=== PATIENT | male | born 1960 | race Caucasian/White ===

== ENCOUNTER 2017-11-25 19:11 | Emergency (ER) | payer OTHER ==
[~2017-11-25] VITALS: Ht 182.9 cm; Wt 94.8 kg
[2017-11-25 20:00] LABS: HEMATOCRIT 47.1 % (38.0-50.0); HEMOGLOBIN 15.8 G/DL (12.5-16.6); MCH 30.6 PG (29.0-34.0); MCHC 33.5 G/DL (30.0-36.0); MCV 91.3 FL (86-99); PLATELET COUNT 244 K/uL (156-360); RBC DIS.WIDTH-CV 13.3 % (11.8-14.6); RBC DIS.WIDTH-SD 45.2 % (39-53); RED BLOOD COUNT 5.16 M/uL (4.00-5.50); WHITE BLOOD COUNT 6.6 K/uL (4.1-10.2)
[2017-11-25 20:09] LABS: ALBUMIN 3.3 g/dL (3.2-4.8); CHLORIDE 104 mEq/L (99-109); POTASSIUM 4.4 mEq/L (3.7-5.4); SODIUM 145 mEq/L (136-147)
[2017-11-25 20:12] LABS: GLUCOSE 265 mg/dL (70-99); TOTAL PROTEIN 6.4 g/dL (6.4-8.3)
[2017-11-25 20:14] LABS: TOTAL BILIRUBIN 0.3 mg/dL (0.0-1.0)
[2017-11-25 20:15] LABS: ALKALINE PHOSPHATASE 118 IU/L (3-129); CREATININE 0.8 mg/dL (0.6-1.3)
[2017-11-25 20:16] LABS: UREA NITROGEN (BUN) 13 mg/dL (9-23)
[2017-11-25 20:17] LABS: AST (GOT) 22 IU/L (2-34)
[2017-11-25 20:18] LABS: ALT (GPT) 21 IU/L (3-49); GFR ESTIMATE (CALCULATED) > 59 mL/min/ (58.99-99999)
[2017-11-25 20:20] LABS: TROP-I INTERPRETATION NEGATIVE; TROPONIN-I 0.04 ng/mL (0.0-0.30)
[2017-11-25] MEDS ORDERED: DUONEB 2.5-0.5 M3 ML AEROSOL (20:36)
[2017-11-25] MEDS ORDERED: NEBULIZER MC (20:37)
[2017-11-25 21:40] LABS: APPEARANCE CLEAR ((CLEAR)); BILIRUBIN NEGATIVE; BLOOD NEGATIVE; COLOR YELLOW ((YELLOW)); GLUCOSE (STRIP) >=500; KETONES NEGATIVE; LEUKOCYTES NEGATIVE; NITRITE NEGATIVE; PROTEIN (STRIP) NEGATIVE; SPECIFIC GRAVITY 1.018 (1.000-1.030)
[2017-11-25] MEDS ORDERED: LASIX40 MG PO (22:25)
[2017-11-25] MEDS ORDERED: K-DUR20 MEQ PO (22:25)
[2017-11-25 23:16] VITALS: BP 166/89
== END 2017-11-25 23:37 | disposition home or self-care (01) ==
LOC: EME 19:11
PROVIDERS: Emergency Medicine Emergency Medical Services
DX: J44.9 Chronic obstructive pulmonary disease, unspecified (principal); I50.9 Heart failure, unspecified; E87.70 Fluid overload, unspecified; R09.02 Hypoxemia; F17.210 Nicotine dependence, cigarettes, uncomplicated; I10 Essential (primary) hypertension; E11.9 Type 2 diabetes mellitus without complications; Z79.4 Long term (current) use of insulin; E78.5 Hyperlipidemia, unspecified; Z88.6 Allergy status to analgesic agent
CPT/HCPCS: 71046; 80048; 80053; 81003; 83880; 84484; 85027; 85379; 93005; 94640; 99281; 99284

== ENCOUNTER 2018-01-29 05:55 | Emergency (ER) | payer SELFPAY ==
[~2018-01-29] VITALS: Ht 182.9 cm; Wt 97.3 kg
[~2018-01-29 05:55] MED LIST: DUONEB 2.5-0.5 M3 ML AEROSOL; K-DUR20 MEQ PO; LASIX40 MG PO; NEBULIZER MC
[2018-01-29 06:36] LABS: BASOPHIL (%) 0.9 % (0-1); BASOPHIL COUNT 0.1 K/uL (0-0.1); EOSINOPHIL (%) 3.6 % (0-5); EOSINOPHIL COUNT 0.2 K/uL (0-0.3); HEMATOCRIT 44.4 % (38.0-50.0); HEMOGLOBIN 15.3 G/DL (12.5-16.6); IMMATURE GRANULOCYTE (%) 0.4 % (0.0-0.7); LYMPHOCYTE (%) 24.3 % (15-42); LYMPHOCYTE COUNT 1.4 K/uL (1.0-2.8); MCH 31.9 PG (29.0-34.0); MCHC 34.5 G/DL (30.0-36.0); MCV 92.7 FL (86-99); MONOCYTE (%) 8.4 % (3-12); MONOCYTE COUNT 0.5 K/uL (0-0.8); NEUTROPHIL (%) 62.4 % (45-76); NEUTROPHIL COUNT 3.5 K/uL (1.8-6.4); PLATELET COUNT 210 K/uL (156-360); RBC DIS.WIDTH-CV 13.7 % (11.8-14.6); RBC DIS.WIDTH-SD 46.5 % (39-53); RED BLOOD COUNT 4.79 M/uL (4.00-5.50); WHITE BLOOD COUNT 5.6 K/uL (4.1-10.2)
[2018-01-29 06:53] LABS: CHLORIDE 108 MEQ/L (99-109); POTASSIUM 4.2 MEQ/L (3.7-5.4); SODIUM 142 MEQ/L (136-147)
[2018-01-29 06:59] LABS: CREATININE 0.8 MG/DL (0.6-1.3); GFR ESTIMATE (CALCULATED) > 59 mL/min/ (58.99-99999); GLUCOSE 239 mg/dL (70-99); UREA NITROGEN (BUN) 17 mg/dL (9-23)
[2018-01-29] MEDS ORDERED: ZITHROMAX Z-PA250 MG PO (08:13)
[2018-01-29] MEDS ORDERED: PREDNISONE50 MG PO (08:13)
[2018-01-29] MEDS ORDERED: PROVENTIL HFA6.7 GM IH (08:16)
[2018-01-29 08:43] VITALS: BP 169/99
== END 2018-01-29 08:45 | disposition home or self-care (01) ==
LOC: EME 05:55
PROVIDERS: Emergency Medicine
DX: J20.9 Acute bronchitis, unspecified (principal); F17.210 Nicotine dependence, cigarettes, uncomplicated; E11.9 Type 2 diabetes mellitus without complications; E78.5 Hyperlipidemia, unspecified; I10 Essential (primary) hypertension; Z79.82 Long term (current) use of aspirin; Z88.6 Allergy status to analgesic agent
CPT/HCPCS: 71045; 80048; 85025; 93005; 94640; 99281; 99284; J7512

== ENCOUNTER 2018-02-19 07:42 | Inpatient (IN) | payer OTHER ==
[~2018-02-19] VITALS: Ht 185.4 cm; Wt 100.2 kg
[~2018-02-19 07:42] MED LIST changes: +PREDNISONE50 MG PO; +PROVENTIL HFA6.7 GM IH; +ZITHROMAX Z-PA250 MG PO
[2018-02-19 08:22] LABS: HEMOGLOBIN 15.5 G/DL (12.5-16.6); MCHC 34.4 G/DL (30.0-36.0); MCV 92.8 FL (86-99); PLATELET COUNT 238 K/uL (156-360); RBC DIS.WIDTH-CV 13.5 % (11.8-14.6); RBC DIS.WIDTH-SD 45.7 % (39-53); RED BLOOD COUNT 4.85 M/uL (4.00-5.50); WHITE BLOOD COUNT 7.9 K/uL (4.1-10.2)
[2018-02-19 08:49] LABS: CHLORIDE 109 MEQ/L (99-109); CREATININE 0.7 MG/DL (0.6-1.3); GFR ESTIMATE (CALCULATED) > 59 mL/min/ (58.99-99999); GLUCOSE 219 mg/dL (70-99); POTASSIUM 3.7 MEQ/L (3.7-5.4); SODIUM 143 MEQ/L (136-147); UREA NITROGEN (BUN) 9 mg/dL (9-23)
[2018-02-19] MEDS ORDERED: MUCINEX1200 MG PO (10:43)
[2018-02-19] MEDS ORDERED: ASPIRIN325 MG PO (10:43)
[2018-02-19] MEDS ORDERED: LASIX40 MG PO (10:46)
[2018-02-19 12:45] LABS: TROP-I INTERPRETATION NEGATIVE; TROPONIN-I 0.05 ng/mL (0.0-0.30)
[2018-02-19 14:59] LABS: HEMOGLOBIN A1c (GLYCOHEMOGLOB) 9.5 % (Below 5.7)
[2018-02-19 18:00] VITALS: BP 176/88
[2018-02-19 19:40] LABS: TROP-I INTERPRETATION NEGATIVE; TROPONIN-I 0.04 ng/mL (0.0-0.30)
[2018-02-19 20:00] VITALS: BP 143/86
[2018-02-19 23:54] VITALS: BP 176/79
[2018-02-20 01:02] LABS: TROP-I INTERPRETATION NEGATIVE; TROPONIN-I 0.03 ng/mL (0.0-0.30)
[2018-02-20 03:57] VITALS: BP 188/77
[2018-02-20 05:25] LABS: HEMATOCRIT 43.4 % (38.0-50.0); HEMOGLOBIN 14.6 G/DL (12.5-16.6); MCHC 33.6 G/DL (30.0-36.0); MCV 92.1 FL (86-99); PLATELET COUNT 223 K/uL (156-360); RBC DIS.WIDTH-CV 13.3 % (11.8-14.6); RBC DIS.WIDTH-SD 45.7 % (39-53); RED BLOOD COUNT 4.71 M/uL (4.00-5.50); WHITE BLOOD COUNT 7.7 K/uL (4.1-10.2)
[2018-02-20 05:44] LABS: CHLORIDE 101 MEQ/L (99-109); CREATININE 0.8 MG/DL (0.6-1.3); GFR ESTIMATE (CALCULATED) > 59 mL/min/ (58.99-99999); GLUCOSE 296 mg/dL (70-99); POTASSIUM 3.6 MEQ/L (3.7-5.4); SODIUM 141 MEQ/L (136-147); UREA NITROGEN (BUN) 13 mg/dL (9-23)
[2018-02-20 07:18] VITALS: BP 164/85
[2018-02-20 12:38] LABS: TROP-I INTERPRETATION NEGATIVE; TROPONIN-I 0.05 ng/mL (0.0-0.30)
[2018-02-20 14:59] VITALS: BP 172/81
[2018-02-20 17:47] VITALS: BP 149/70
[2018-02-20 19:31] VITALS: BP 135/94
[2018-02-21] VITALS (8 sets, daily range): BP systolic 130–195; BP diastolic 78–106
[2018-02-21 05:12] LABS: HEMATOCRIT 44.5 % (38.0-50.0); HEMOGLOBIN 14.9 G/DL (12.5-16.6); MCH 31.3 PG (29.0-34.0); MCHC 33.5 G/DL (30.0-36.0); MCV 93.5 FL (86-99); PLATELET COUNT 231 K/uL (156-360); RBC DIS.WIDTH-CV 13.6 % (11.8-14.6); RBC DIS.WIDTH-SD 47.1 % (39-53); RED BLOOD COUNT 4.76 M/uL (4.00-5.50); WHITE BLOOD COUNT 9.3 K/uL (4.1-10.2)
[2018-02-21 06:06] LABS: CHLORIDE 97 MEQ/L (99-109); CREATININE 0.8 MG/DL (0.6-1.3); GFR ESTIMATE (CALCULATED) > 59 mL/min/ (58.99-99999); GLUCOSE 282 mg/dL (70-99); POTASSIUM 3.9 MEQ/L (3.7-5.4); SODIUM 138 MEQ/L (136-147); UREA NITROGEN (BUN) 15 mg/dL (9-23)
[2018-02-21] MEDS ORDERED: SYMBICORT60 INHALA1 IH (09:47)
[2018-02-21] MEDS ORDERED: VENTOLIN HFA18 GM IH (09:47)
[2018-02-21] MEDS ORDERED: NITROSTAT0.4 MG SL (09:49)
[2018-02-21] MEDS ORDERED: ALBUTEROL1.25 MG/3 IH (09:49)
[2018-02-21] MEDS ORDERED: ATORVASTATIN CA40 MG PO (09:49)
[2018-02-21] MEDS ORDERED: ASPIR-LOW81 MG PO (09:52)
[2018-02-21] MEDS ORDERED: FUROSEMIDE40 MG PO (09:52)
[2018-02-21] MEDS ORDERED: LISINOPRIL40 MG PO (09:52)
[2018-02-21] MEDS ORDERED: MEDROL DOSEPAK4 MG PO (09:54)
[2018-02-21] MEDS ORDERED: DOXYCYCLINE HYC50 MG PO (09:54)
[2018-02-21] MEDS ORDERED: METFORMIN HCL500 MG PO (09:55)
[2018-02-22 03:59] VITALS: BP 137/87
[2018-02-22 07:09] VITALS: BP 179/103
[2018-02-22] MEDS ORDERED: COREG6.25 M1 PO (07:56)
[2018-02-22 08:43] LABS: BASOPHIL (%) 0.1 % (0-1); EOSINOPHIL (%) 0 % (0-5); HEMATOCRIT 45.3 % (38.0-50.0); HEMOGLOBIN 14.9 G/DL (12.5-16.6); IMMATURE GRANULOCYTE (%) 0.5 % (0.0-0.7); LYMPHOCYTE (%) 5.7 % (15-42); LYMPHOCYTE COUNT 0.6 K/uL (1.0-2.8); MCH 30.8 PG (29.0-34.0); MCHC 32.9 G/DL (30.0-36.0); MCV 93.8 FL (86-99); MONOCYTE COUNT 0.4 K/uL (0-0.8); NEUTROPHIL (%) 89.7 % (45-76); NEUTROPHIL COUNT 8.6 K/uL (1.8-6.4); PLATELET COUNT 235 K/uL (156-360); RBC DIS.WIDTH-CV 13.7 % (11.8-14.6); RBC DIS.WIDTH-SD 47.4 % (39-53); RED BLOOD COUNT 4.83 M/uL (4.00-5.50); WHITE BLOOD COUNT 9.6 K/uL (4.1-10.2)
[2018-02-22 09:09] LABS: ALBUMIN 3.3 G/DL (3.2-4.8); ALKALINE PHOSPHATASE 70 IU/L (3-129); ALT (GPT) 16 IU/L (3-49); AST (GOT) 9 IU/L (2-34); CHLORIDE 99 MEQ/L (99-109); CREATININE 0.8 MG/DL (0.6-1.3); GFR ESTIMATE (CALCULATED) > 59 mL/min/ (58.99-99999); GLUCOSE 253 mg/dL (70-99); POTASSIUM 4.3 MEQ/L (3.7-5.4); SODIUM 141 MEQ/L (136-147); TOTAL BILIRUBIN 0.6 MG/DL (0.0-1.0); UREA NITROGEN (BUN) 20 mg/dL (9-23)
== END 2018-02-22 12:53 | disposition home or self-care (01) | DRG 291 ==
LOC: EME 07:42 → 4SOUTH 11:30 → EDOF 11:30 → ENRESERV 11:43 → 4SOUTH 17:02 → ENPENDDIS 02-22 10:34 → 4SOUTH 02-22 12:53
PROVIDERS: Emergency Medicine; Internal Medicine; Physician Assistant Medical
DX: I11.0 Hypertensive heart disease with heart failure (principal); J96.01 Acute respiratory failure with hypoxia; J44.0 Chronic obstructive pulmonary disease with (acute) lower respiratory infection; J44.1 Chronic obstructive pulmonary disease with (acute) exacerbation; I50.23 Acute on chronic systolic (congestive) heart failure; E11.65 Type 2 diabetes mellitus with hyperglycemia; I25.10 Atherosclerotic heart disease of native coronary artery without angina pectoris; I44.4 Left anterior fascicular block; I42.9 Cardiomyopathy, unspecified; J20.9 Acute bronchitis, unspecified; I34.0 Nonrheumatic mitral (valve) insufficiency; I27.20 Pulmonary hypertension, unspecified; I36.1 Nonrheumatic tricuspid (valve) insufficiency; Z59.0 Homelessness; Z79.51 Long term (current) use of inhaled steroids; Z91.14 Patient's other noncompliance with medication regimen; Z91.19 Patient's noncompliance with other medical treatment and regimen; I25.2 Old myocardial infarction; Z87.891 Personal history of nicotine dependence; Z79.82 Long term (current) use of aspirin; Z79.52 Long term (current) use of systemic steroids; Z79.84 Long term (current) use of oral hypoglycemic drugs
CPT/HCPCS: 71045; 80048; 80053; 82948; 83036; 83880; 84484; 85025; 85027; 93005; 93306; 94640; 94760; 94799; 99281; 99285; G0378; J0456; J1650; J1815; J1940; J7512